=== PATIENT | female | born 1990 | race African-American/Black ===

== ENCOUNTER 2017-09-24 15:10 | Emergency (ER) | payer OTHER ==
[~2017-09-24] VITALS: Ht 165.1 cm; Wt 59.0 kg
[~2017-09-24 15:10] MED LIST: TRAMADOL 50 MG50 MG PO
[2017-09-24] MEDS ORDERED: CYCLOBENZAPRINE5 MG PO (18:13)
[2017-09-24] MEDS ORDERED: HYDROCODONE-AP1 EAC6 PO (18:13)
[2017-09-24 18:20] VITALS: BP 120/68
== END 2017-09-24 18:20 | disposition home or self-care (01) ==
LOC: ER 15:10
DX: S16.1XXA Strain of muscle, fascia and tendon at neck level, initial encounter (principal); S39.012A Strain of muscle, fascia and tendon of lower back, initial encounter; R51 Headache; Z88.6 Allergy status to analgesic agent; Z88.5 Allergy status to narcotic agent; V89.2XXA Person injured in unspecified motor-vehicle accident, traffic, initial encounter; Y92.89 Other specified places as the place of occurrence of the external cause; Y93.89 Activity, other specified; Y99.8 Other external cause status

== ENCOUNTER 2018-10-15 16:49 | Emergency (ER) | payer OTHER ==
[~2018-10-15] VITALS: Ht 170.2 cm; Wt 56.7 kg
[~2018-10-15 16:49] MED LIST changes: +CYCLOBENZAPRINE5 MG PO; +HYDROCODONE-AP1 EAC6 PO
[2018-10-15 18:35] VITALS: BP 92/52
== END 2018-10-15 18:35 | disposition home or self-care (01) ==
LOC: ER 16:49
DX: S60.052A Contusion of left little finger without damage to nail, initial encounter (principal); M25.512 Pain in left shoulder; M25.572 Pain in left ankle and joints of left foot; M54.6 Pain in thoracic spine; M54.2 Cervicalgia; Z88.6 Allergy status to analgesic agent; Z88.8 Allergy status to other drugs, medicaments and biological substances; V89.2XXA Person injured in unspecified motor-vehicle accident, traffic, initial encounter; Y93.89 Activity, other specified; Y92.89 Other specified places as the place of occurrence of the external cause; Y99.8 Other external cause status